=== PATIENT | male | born 1970 | race Caucasian/White ===

== ENCOUNTER 2020-07-11 01:28 | Emergency (ER) | payer OTHER, SELFPAY ==
[2020-07-11 01:44] VITALS: BP 170/72; PULSE 81; RESP 18; TEMP 36.6; O2SAT 94; BMI 33.9
[2020-07-11] MEDS: Lidocaine HCl 2 % MPF 5 ML VIAL INFILTRATI (02:09)
--- NOTE | 2020-07-11 02:29 | ED.WOUNDLAC ---
HPI - Wound/Laceration General Chief Complaint: Wound/Laceration Stated Complaint: LAC ON FINGER Time Seen by Provider: 07/11/20 01:42 Source: patient History of Present Illness HPI narrative: This is a 50-year-old male who presents from work with laceration to left index finger, hemostatic, reports tetanus within 5 years. Denies any numbness/tingling to the finger. Related Data Previous Rx's Medication Instructions Recorded doxycycline monohydrate 100 mg PO BID 5 Days #10 cap 07/11/20 Allergies Allergy/AdvReac Type Severity Reaction Status Date / Time amoxicillin Allergy Rash Verified 07/11/20 02:36 Penicillins Allergy Rash Verified 07/11/20 02:36 Review of Systems Review of Systems: Pertinent positives and negatives as stated in HPI 10 point review systems is otherwise negative. [facility] Past Medical History Medical History Asthma CKD (chronic kidney disease) Diabetes Hypertension Social History Social History Advance Directives: No Physical Exam Vital Signs: Vital Signs: Last Vital Signs Temp 97.9 F 07/11/20 01:44 Pulse 81 07/11/20 01:44 Resp 18 07/11/20 01:44 BP 170/72 H 07/11/20 01:44 Pulse Ox 94 07/11/20 01:44 Body Mass Index 33.9 VITAL SIGNS: Reviewed. GENERAL: Well developed, well nourished, in no acute distress. LUNGS: Normal breath sounds. SpO2<94>, no JVD or lower extremity edema. ABDOMEN: Soft, non-tender, non-distended with bowel sounds. LEFT FINGER: Superficial laceration to radial aspect finger, full range of motion, capillary refill less than 3 seconds, sensation intact. NEUROLOGIC: Alert and oriented x 4. Sensation intact distal to the laceration Course Course Course Narrative: This is a 50-year-old male with history and clinical presentation consistent with clean laceration to the radial side of the left index finger, hemostatic, tetanus within the past 5 years, that was repaired without complications with 3 retention sutures. Patient was discharged in stable condition. Procedures Laceration Laceration 1: Site: hand Side (If applicable): left Size (cm): 2 Description: linear Depth: simple, single layer Local Anesthetic: lidocaine 2% Amount of anesthesia used (mL): 5 Pre-repair: wound explored, irrigated extensively and deep structures intact Skin layer closed with: nylon Size (cm): 4-0 Number of sutures: 3 Technique: other (Retention) Discharge Plan Discharge Clinical Impression: Laceration Patient Disposition: Home, Self-Care Instructions: Care For Your Stitches (ED), Laceration (ED) Additional Instructions: Resume all home medications as prescribed. May use [id number] Tylenol/ibuprofen as needed for pain control. Keep the dressing in place for 24 hours and then may remove and cleanse area with soap and water and apply antibiotic ointment afterwards. You will need to follow-up with your primary care provider or return to this emergency department for suture removal in 7-10 days. Return to the emergency department if you develop any fevers, chills, redness at the site. Prescriptions: New doxycycline monohydrate 100 mg capsule 100 mg PO BID 5 Days Qty: 10 RF: 0 Referrals: Tomasz Rosales MD [Primary Care Provider] - 2 days (Needs suture removal from left index finger, there are 3, in 7-10 days.)
== END 2020-07-11 02:49 | disposition home or self-care (01) ==
PROVIDERS: Emergency Provider Student in an Organized Health Care Education/Training Program; PCP Internal Medicine
DX: S61.211A Laceration without foreign body of left index finger without damage to nail, initial encounter (principal); W45.8XXA Other foreign body or object entering through skin, initial encounter; Y93.9 Activity, unspecified; Y92.9 Unspecified place or not applicable; Y99.0 Civilian activity done for income or pay
CPT/HCPCS: 12001; 99284